=== PATIENT | female | born 1985 | race Caucasian/White ===

== ENCOUNTER 2016-11-09 23:25 | Emergency (ER) | payer OTHER ==
[~2016-11-09] VITALS: Ht 177.8 cm; Wt 94.2 kg
[~2016-11-09 23:25] MED LIST: ALEVE COLD & S1 EACH PO; BUPROBAN150 MG PO; CEFDINIR300 MG PO; CYCLOBENZAPRINE10 MG PO; ESTARYLLA1 EACH PO; FLAGYL500 MG PO; FLINTSTONES WI1 EACH PO; METRONIDAZOLE500 MG PO; MIRENA52 MG IY; MOTRIN800 MG PO; NAPROSYN500 MG PO; NEURONTIN300 MG PO; NOHOMEMEDS; PROMETHAZINE HC25 M1 PO; REGLAN10 MG PO; TYLENOL WITH C1 EACH PO; ULTRAM50 MG PO; ZOFRAN ODT4 MG PO; ZYRTEC10 M3 PO
[2016-11-09 23:58] LABS: HEMATOCRIT 40.4 % (36.0-46.0); MCH 29.4 PG (29.0-34.0); MCHC 33.9 G/DL (30.0-36.0); MCV 86.7 FL (83-99); MEAN PLAT.VOLUME 10.3 uM^3 (9.5-12.4); PLATELET COUNT 270 K/uL (156-360); RBC DIS.WIDTH-CV 12.3 % (11.8-14.6); RBC DIS.WIDTH-SD 38.8 % (39-53); RED BLOOD COUNT 4.66 M/uL (3.80-5.20); WHITE BLOOD COUNT 13.9 K/uL (4.1-10.2)
[2016-11-10 00:07] LABS: CHLORIDE 102 mEq/L (99-109); POTASSIUM 3.9 mEq/L (3.7-5.4); SODIUM 138 mEq/L (136-147)
[2016-11-10 00:09] LABS: GLUCOSE 104 mg/dL (70-99)
[2016-11-10 00:10] LABS: ANION GAP 10 MEQ/L (2-14)
[2016-11-10 00:13] LABS: GFR ESTIMATE (CALCULATED) > 59 mL/min/
[2016-11-10 00:14] LABS: UREA NITROGEN (BUN) 15 mg/dL (9-23)
[2016-11-10] MEDS ORDERED: PREDNISONE20 MG PO (01:21)
[2016-11-10] MEDS ORDERED: NASONEX17 GM BOTH NARES (01:21)
[2016-11-10] MEDS ORDERED: TESSALON PERLE100 MG PO (01:21)
[2016-11-10] MEDS ORDERED: MUCINEX D ER T1 EACH PO (01:21)
[2016-11-10 01:36] VITALS: BP 136/88
== END 2016-11-10 01:37 | disposition home or self-care (01) ==
LOC: EME 23:25
DX: J06.9 Acute upper respiratory infection, unspecified (principal); H65.90 Unspecified nonsuppurative otitis media, unspecified ear; J20.8 Acute bronchitis due to other specified organisms; J30.9 Allergic rhinitis, unspecified
CPT/HCPCS: 71020; 80048; 85027; 94640; 99281; 99284; J7512

== ENCOUNTER 2017-01-02 10:43 | Emergency (ER) | payer OTHER ==
[~2017-01-02] VITALS: Ht 175.3 cm; Wt 96.3 kg
[~2017-01-02 10:43] MED LIST changes: +MUCINEX D ER T1 EACH PO; +NASONEX17 GM BOTH NARES; +PREDNISONE20 MG PO; +TESSALON PERLE100 MG PO
[2017-01-02] MEDS ORDERED: ULTRAM50 MG PO (13:02)
[2017-01-02 13:14] VITALS: BP 156/113
== END 2017-01-02 13:16 | disposition home or self-care (01) ==
LOC: EME 10:43
DX: M25.562 Pain in left knee (principal); G89.29 Other chronic pain
CPT/HCPCS: 73564; 99281; 99283

== ENCOUNTER 2017-04-28 06:39 | Day surgery (SDC) | payer OTHER ==
[~2017-04-28] VITALS: Ht 177.8 cm; Wt 91.2 kg
[~2017-04-28 06:39] MED LIST changes: +CENTRUM WOMEN1 EACH PO
[2017-04-28 07:46] VITALS: BP 138/84
[2017-04-28] MEDS ORDERED: ENDOCET 5-3251 EACH PO (10:10)
[2017-04-28 15:00] VITALS: BP 142/93
[2017-04-28 15:32] VITALS: BP 144/88
== END 2017-04-28 15:33 | disposition home or self-care (01) ==
LOC: SDC 06:39
PROC: 0U574ZZ Destruction of Bilateral Fallopian Tubes, Percutaneous Endoscopic Approach (ICD-10-PCS; principal; 2017-04-28)
DX: Z30.2 Encounter for sterilization (principal); E66.9 Obesity, unspecified; Z68.28 Body mass index [BMI] 28.0-28.9, adult; F41.8 Other specified anxiety disorders; Z87.891 Personal history of nicotine dependence
CPT/HCPCS: J0330; J1100; J1170; J1885; J2250; J2405; J2550; J2765; J3010

== ENCOUNTER 2017-06-26 09:21 | Emergency (ER) | payer OTHER ==
[~2017-06-26] VITALS: Ht 177.8 cm; Wt 92.6 kg
[~2017-06-26 09:21] MED LIST changes: +ENDOCET 5-3251 EACH PO
[2017-06-26 09:50] LABS: MCHC 34.4 G/DL (30.0-36.0); MCV 87.2 FL (83-99); MEAN PLAT.VOLUME 10.7 uM^3 (9.5-12.4); PLATELET COUNT 260 K/uL (156-360); RBC DIS.WIDTH-CV 12.7 % (11.8-14.6); RBC DIS.WIDTH-SD 40.4 % (39-53); RED BLOOD COUNT 4.47 M/uL (3.80-5.20); WHITE BLOOD COUNT 9.5 K/uL (4.1-10.2)
[2017-06-26 10:05] LABS: CHLORIDE 107 mEq/L (99-109); POTASSIUM 3.8 mEq/L (3.7-5.4); SODIUM 141 mEq/L (136-147)
[2017-06-26 10:07] LABS: GLUCOSE 92 mg/dL (70-99)
[2017-06-26 10:08] LABS: ANION GAP 10 MEQ/L (2-14)
[2017-06-26 10:09] LABS: TOTAL BILIRUBIN 0.4 mg/dL (0.0-1.0)
[2017-06-26 10:10] LABS: ALKALINE PHOSPHATASE 89 IU/L (3-129)
[2017-06-26 10:11] LABS: GFR ESTIMATE (CALCULATED) > 59 mL/min/
[2017-06-26 10:12] LABS: UREA NITROGEN (BUN) 12 mg/dL (9-23)
[2017-06-26 10:14] LABS: LIPASE 44 U/L (1.0-51.0)
[2017-06-26 10:19] LABS: QUANTITATIVE HCG < 4.0 MIU/ML
[2017-06-26 11:33] LABS: ADD MIUA? YES; BILIRUBIN NEGATIVE; BLOOD SMALL; COLOR AMBER ((YELLOW)); GLUCOSE (STRIP) NEGATIVE; KETONES NEGATIVE; LEUKOCYTES MODERATE; NITRITE POSITIVE; PROTEIN (STRIP) NEGATIVE; SPECIFIC GRAVITY 1.018 (1.000-1.030)
[2017-06-26 11:48] LABS: BACTERIA RARE /HPF; EPITHELIAL CELLS RARE /HPF; MUCUS 1+ /LPF; UCUL ADDED? YES; WHITE BLOOD CELLS TNTC /HPF (0-5)
[2017-06-26] MEDS ORDERED: ZOFRAN ODT4 MG PO (11:55)
[2017-06-26] MEDS ORDERED: KEFLEX500 MG PO (11:55)
[2017-06-26 12:12] VITALS: BP 147/88
== END 2017-06-26 12:13 | disposition home or self-care (01) ==
LOC: EME 09:21
DX: N30.90 Cystitis, unspecified without hematuria (principal); R11.2 Nausea with vomiting, unspecified; N89.8 Other specified noninflammatory disorders of vagina; F32.9 Major depressive disorder, single episode, unspecified; F17.200 Nicotine dependence, unspecified, uncomplicated
CPT/HCPCS: 80053; 81003; 83690; 84702; 85027; 87077; 87086; 87186; 99281; 99284

== ENCOUNTER 2017-08-18 23:31 | Emergency (ER) | payer OTHER ==
[~2017-08-18] VITALS: Ht 177.8 cm; Wt 93.0 kg
[~2017-08-18 23:31] MED LIST changes: +KEFLEX500 MG PO
[2017-08-19 00:36] LABS: HEMATOCRIT 38.3 % (36.0-46.0); MCH 30.1 PG (29.0-34.0); MCHC 34.5 G/DL (30.0-36.0); MCV 87.2 FL (83-99); MEAN PLAT.VOLUME 10.7 uM^3 (9.5-12.4); PLATELET COUNT 259 K/uL (156-360); RBC DIS.WIDTH-CV 12.5 % (11.8-14.6); RBC DIS.WIDTH-SD 39.8 % (39-53); RED BLOOD COUNT 4.39 M/uL (3.80-5.20); WHITE BLOOD COUNT 11.1 K/uL (4.1-10.2)
[2017-08-19 01:13] LABS: QUANTITATIVE HCG < 4.0 MIU/ML
[2017-08-19 01:26] LABS: CHLORIDE 107 mEq/L (99-109); POTASSIUM 3.5 mEq/L (3.7-5.4); SODIUM 139 mEq/L (136-147)
[2017-08-19 01:28] LABS: GLUCOSE 120 mg/dL (70-99)
[2017-08-19 01:29] LABS: ANION GAP 8 MEQ/L (2-14)
[2017-08-19 01:30] LABS: TOTAL BILIRUBIN 0.4 mg/dL (0.0-1.0)
[2017-08-19 01:31] LABS: ALKALINE PHOSPHATASE 82 IU/L (3-129)
[2017-08-19 01:32] LABS: GFR ESTIMATE (CALCULATED) > 59 mL/min/
[2017-08-19 01:33] LABS: UREA NITROGEN (BUN) 12 mg/dL (9-23)
[2017-08-19 02:10] LABS: LIPASE 31 U/L (1.0-51.0)
[2017-08-19] MEDS ORDERED: ZOFRAN4 MG PO (03:52)
[2017-08-19 05:06] LABS: ADD MIUA? YES; BILIRUBIN NEGATIVE; BLOOD SMALL; COLOR YELLOW ((YELLOW)); GLUCOSE (STRIP) NEGATIVE; KETONES NEGATIVE; LEUKOCYTES NEGATIVE; NITRITE NEGATIVE; PROTEIN (STRIP) NEGATIVE; SPECIFIC GRAVITY 1.015 (1.000-1.030)
[2017-08-19 05:24] LABS: BACTERIA RARE /HPF; EPITHELIAL CELLS RARE /HPF; MUCUS NONE SEEN /LPF; RED BLOOD CELLS 0-5 /HPF (0-5); UCUL ADDED? NO; WHITE BLOOD CELLS NONE SEEN /HPF (0-5)
[2017-08-19 05:56] VITALS: BP 133/96
== END 2017-08-19 06:02 | disposition home or self-care (01) ==
LOC: EME 23:31
DX: R11.2 Nausea with vomiting, unspecified (principal); R19.7 Diarrhea, unspecified; E86.0 Dehydration; F32.9 Major depressive disorder, single episode, unspecified; F17.200 Nicotine dependence, unspecified, uncomplicated; Z91.040 Latex allergy status
CPT/HCPCS: 80053; 81003; 83690; 84702; 85027; 99281; 99285; J2405; J7030

== ENCOUNTER 2017-09-19 01:45 | Emergency (ER) | payer OTHER ==
[~2017-09-19] VITALS: Ht 175.3 cm; Wt 90.8 kg
[~2017-09-19 01:45] MED LIST changes: +ZOFRAN4 MG PO
[2017-09-19 02:29] LABS: HEMATOCRIT 40.4 % (36.0-46.0); HEMOGLOBIN 13.9 G/DL (11.9-15.5); MCH 29.6 PG (29.0-34.0); MCHC 34.4 G/DL (30.0-36.0); PLATELET COUNT 209 K/uL (156-360); RBC DIS.WIDTH-CV 12.6 % (11.8-14.6); RBC DIS.WIDTH-SD 39.9 % (39-53); WHITE BLOOD COUNT 5.7 K/uL (4.1-10.2)
[2017-09-19 02:40] LABS: CHLORIDE 104 mEq/L (99-109); POTASSIUM 3.7 mEq/L (3.7-5.4); SODIUM 138 mEq/L (136-147)
[2017-09-19 02:41] LABS: GLUCOSE 81 mg/dL (70-99)
[2017-09-19 02:45] LABS: CREATININE 0.8 mg/dL (0.6-1.3); GFR ESTIMATE (CALCULATED) > 59 mL/min/
[2017-09-19 02:46] LABS: UREA NITROGEN (BUN) 14 mg/dL (9-23)
[2017-09-19 03:13] LABS: QUANTITATIVE HCG < 4.0 MIU/ML
[2017-09-19] MEDS ORDERED: VENTOLIN HFA18 GM IH (04:03)
[2017-09-19] MEDS ORDERED: NASAL DECONGEST30 MG PO (04:03)
[2017-09-19] MEDS ORDERED: MOTRIN800 MG PO (04:03)
[2017-09-19 04:10] VITALS: BP 128/92
== END 2017-09-19 04:17 | disposition home or self-care (01) ==
LOC: EME 01:45
DX: J06.9 Acute upper respiratory infection, unspecified (principal); J98.01 Acute bronchospasm; R68.89 Other general symptoms and signs; R07.89 Other chest pain; F32.9 Major depressive disorder, single episode, unspecified; F17.200 Nicotine dependence, unspecified, uncomplicated; Z79.3 Long term (current) use of hormonal contraceptives
CPT/HCPCS: 71046; 80048; 84702; 85027; 94640

== ENCOUNTER 2017-12-02 21:45 | Emergency (ER) | payer OTHER ==
[~2017-12-02] VITALS: Ht 177.8 cm; Wt 94.0 kg
[~2017-12-02 21:45] MED LIST changes: +NASAL DECONGEST30 MG PO; +VENTOLIN HFA18 GM IH
[2017-12-02 22:39] LABS: HEMATOCRIT 40.1 % (36.0-46.0); MCH 30.2 PG (29.0-34.0); MCHC 34.9 G/DL (30.0-36.0); MCV 86.6 FL (83-99); PLATELET COUNT 290 K/uL (156-360); RBC DIS.WIDTH-CV 12.3 % (11.8-14.6); RBC DIS.WIDTH-SD 38.8 % (39-53); RED BLOOD COUNT 4.63 M/uL (3.80-5.20); WHITE BLOOD COUNT 11.4 K/uL (4.1-10.2)
[2017-12-02 22:48] LABS: ALBUMIN 4.3 g/dL (3.2-4.8)
[2017-12-02 22:49] LABS: CHLORIDE 104 mEq/L (99-109); POTASSIUM 3.9 mEq/L (3.7-5.4); SODIUM 139 mEq/L (136-147)
[2017-12-02 22:51] LABS: GLUCOSE 88 mg/dL (70-99); TOTAL PROTEIN 8.1 g/dL (6.4-8.3)
[2017-12-02 22:53] LABS: TOTAL BILIRUBIN 0.2 mg/dL (0.0-1.0)
[2017-12-02 22:54] LABS: ALKALINE PHOSPHATASE 89 IU/L (3-129)
[2017-12-02 22:55] LABS: CREATININE 0.8 mg/dL (0.6-1.3); GFR ESTIMATE (CALCULATED) > 59 mL/min/
[2017-12-02 22:56] LABS: AST (GOT) 17 IU/L (2-34); UREA NITROGEN (BUN) 15 mg/dL (9-23)
[2017-12-02 22:58] LABS: ALT (GPT) 22 IU/L (3-49)
[2017-12-02 23:03] LABS: QUANTITATIVE HCG < 4.0 MIU/ML
[2017-12-02 23:42] LABS: APPEARANCE SL.HAZY ((CLEAR)); BILIRUBIN NEGATIVE; BLOOD NEGATIVE; COLOR YELLOW ((YELLOW)); GLUCOSE (STRIP) NEGATIVE; KETONES NEGATIVE; LEUKOCYTES SMALL; NITRITE NEGATIVE; PROTEIN (STRIP) NEGATIVE; SPECIFIC GRAVITY 1.018 (1.000-1.030); UROBILINOGEN 0.2 MG/DL (0.2-1.0)
[2017-12-02 23:44] LABS: BACTERIA RARE /HPF; EPITHELIAL CELLS 2+ /HPF; MUCUS TRACE /LPF; RED BLOOD CELLS 0-5 /HPF (0-5); UCUL ADDED? NO; WHITE BLOOD CELLS 0-5 /HPF (0-5)
[2017-12-03 00:48] LABS: AMYLASE 66 IU/L (1-118)
[2017-12-03 00:57] LABS: LIPASE 36 U/L (1.0-51.0)
[2017-12-03] MEDS ORDERED: FLEXERIL10 MG PO (02:42)
[2017-12-03] MEDS ORDERED: NAPROSYN500 MG PO (02:42)
[2017-12-03 03:37] VITALS: BP 137/102
== END 2017-12-03 03:41 | disposition home or self-care (01) ==
LOC: EME 21:45
DX: R10.9 Unspecified abdominal pain (principal); F32.9 Major depressive disorder, single episode, unspecified; Z87.891 Personal history of nicotine dependence; Z91.040 Latex allergy status
CPT/HCPCS: 74176; 80053; 81003; 82150; 83690; 84702; 85027; 99281; 99285; J1885

== ENCOUNTER 2017-12-05 09:13 | Emergency (ER) | payer OTHER ==
[~2017-12-05] VITALS: Ht 177.8 cm; Wt 97.0 kg
[~2017-12-05 09:13] MED LIST changes: +FLEXERIL10 MG PO
[2017-12-05 10:01] LABS: HEMATOCRIT 38.6 % (36.0-46.0); HEMOGLOBIN 13.5 G/DL (11.9-15.5); MCH 30.6 PG (29.0-34.0); MCV 87.5 FL (83-99); PLATELET COUNT 234 K/uL (156-360); RBC DIS.WIDTH-CV 12.4 % (11.8-14.6); RBC DIS.WIDTH-SD 39.8 % (39-53); RED BLOOD COUNT 4.41 M/uL (3.80-5.20); WHITE BLOOD COUNT 8.9 K/uL (4.1-10.2)
[2017-12-05 10:12] LABS: CHLORIDE 105 mEq/L (99-109); POTASSIUM 4.1 mEq/L (3.7-5.4); SODIUM 141 mEq/L (136-147)
[2017-12-05 10:18] LABS: CREATININE 0.8 mg/dL (0.6-1.3); GFR ESTIMATE (CALCULATED) > 59 mL/min/
[2017-12-05 10:19] LABS: UREA NITROGEN (BUN) 15 mg/dL (9-23)
[2017-12-05 10:26] LABS: GLUCOSE 118 mg/dL (70-99)
[2017-12-05 11:25] LABS: APPEARANCE CLEAR ((CLEAR)); BILIRUBIN NEGATIVE; BLOOD NEGATIVE; COLOR YELLOW ((YELLOW)); GLUCOSE (STRIP) NEGATIVE; KETONES NEGATIVE; LEUKOCYTES NEGATIVE; NITRITE NEGATIVE; PROTEIN (STRIP) NEGATIVE; UCUL ADDED? NO; UROBILINOGEN 0.2 MG/DL (0.2-1.0)
[2017-12-05] MEDS ORDERED: MEDROL DOSEPAK4 MG PO (11:53)
[2017-12-05] MEDS ORDERED: NAPROSYN500 MG PO (11:53)
[2017-12-05 12:25] LABS: QUANTITATIVE HCG < 4.0 MIU/ML
[2017-12-05 12:41] VITALS: BP 152/100
== END 2017-12-05 12:42 | disposition home or self-care (01) ==
LOC: EME 09:13
DX: S39.012A Strain of muscle, fascia and tendon of lower back, initial encounter (principal); F32.9 Major depressive disorder, single episode, unspecified; Z79.3 Long term (current) use of hormonal contraceptives; Z87.891 Personal history of nicotine dependence; Z87.442 Personal history of urinary calculi; Z91.040 Latex allergy status; Z91.030 Bee allergy status
CPT/HCPCS: 80048; 81003; 81025; 84702; 85027; 99281; 99284